=== PATIENT | male | born 1980 | race Caucasian/White ===

== ENCOUNTER 2024-05-25 14:40 | Inpatient (IN) ==
--- NOTE | 2024-05-25 15:11 | Emergency Department Note ---
Impression & Plan Perineal mass in male, Abdominal pain, Vomiting ED Provider Note NAME: MICHELLE VARGHESE AGE: 44 SEX: M : 1980 ARRIVES VIA: Walk-In INFORMANT: Patient ED PROVIDER(S): Kendrick Zhou DO CHIEF COMPLAINT: Perineal pain HPI: Patient is is a 44-year-old male who has been following with urology for peritoneal mass. He notes this has been present all summer and has gotten significantly worse recently. He is having trouble walking and getting around. He admits to drainage and discharge today which is bloody and green. Denies any fevers. No headache or change in vision. No chest pain or shortness of breath. No dysuria, urgency, or frequency. No other exacerbating or remitting factors. ADDITIONAL HISTORY OBTAINED: Per HPI Chronic Medical/Social Conditions Affecting Care: Per HPI PAST MEDICAL HISTORY:See Below PAST SURGICAL HISTORY:See Below FAMILY HISTORY:See Below SOCIAL HISTORY:See Below HOME MEDICATIONS:See Below ALLERGIES:See Below VITALS:See Below PHYSICAL EXAMINATION: GENERAL: Sitting up in bed, alert, well appearing, well nourished, no distress, non-toxic EYE EXAM: normal conjunctiva. PERRL and EOM's grossly intact. OROPHARYNX: mucous membranes are moist LUNGS: Clear to auscultation. Normal chest wall mechanics HEART: no murmurs, S1 normal and S2 normal ABDOMEN: abdomen soft, non-tender, normo-active bowel sounds, no masses, no rebound or guarding. : Induration and tenderness throughout just inferior to the scrotum tracking to the rectum with green/bloody purulent drainage UPPER EXTREMITIES: upper extremities are grossly normal. LOWER EXTREMITIES: No pitting edema. NEURO EXAM: Normal sensorium, cranial nerves II-XII grossly intact, normal speech, no gross weakness of arms, no gross weakness of legs. MEDICAL DECISION MAKING: Patient is a 44-year-old male who presents to the ER for perianal mass which is being followed by urology and is scheduled to go to the OR tomorrow. External records were reviewed did show he is scheduled for the OR with a cystic mass. IV was established and blood work was obtained. He notes the pain has gotten worse and it is draining now. Labs show no significant leukocytosis or anemia. BMP along LFTs was unremarkable. Culture was obtained. He was seen and evaluated. He was given Augmentin. I discussed case with Dr. Smith he noted that this patient would be best served following up as an outpatient for the OR tomorrow as scheduled in outpatient surgical center. Patient was given a dose of morphine for pain. Following this he had severe periumbilical pain associate with vomiting. This would come and go in waves. He was given IV fluids, GI cocktail, Pepcid, Bentyl, Reglan and Phenergan. These episodes would come and go. They lasted for close to 3 hours. Following this he was still on the floor vomiting and we discussed case with the hospitalist for observation. I do favor that this is likely secondary to the morphine as he notes he has had this before with taking [id number] medications and oral pain meds but he did not mention this initially. EKG was obtained due to the belly pain and was unremarkable. Consults/Care Managements Discussions: Per MDM Triage Nursing notes reviewed. Limited review of prior medical records performed Vital Signs: reviewed and remarkable for HTN Differential diagnosis: Cardiac ischemia, aortic dissection, pulmonary embolism, pneumothorax, pneumonia, pericarditis, myocarditis, esophageal rupture, GERD, cholecystitis, pancreatitis, musculoskeletal, as well as other pathologies. ER treatment provided: See below Diagnostics interpreted by me include EKG and cardiac monitoring as listed below: -Cardiac Monitoring: An order was placed for continuous cardiac monitoring. The monitor shows a rate of 80 with sinus rhythm. -ECG: Sinus rhythm rate 75 Normal axis No PVCs QTc 446 -Laboratory studies:Interpreted by me as stated above in MDM and shown below. Imaging studies: Xrays: As interpreted by me:none CTs show: none Procedures:none Critical Care: None Past Med/Surg History Problem List (Updated 05/25/24 @ 21:11 by Kendrick Zhou DO) Vomiting (Acute) Abdominal pain (Acute) Nausea & vomiting Abdominal pain Perineal mass in male (Acute) Medical History (Updated 05/25/24 @ 21:11 by Kendrick Zhou DO) History of COVID-19 + test approx 2019 or 2020. Asymptomatic. 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 Feels Safe at Home: Yes Assistive Devices: Glasses Allergies Allergies Allergy/AdvReac Type Severity Reaction Status Date / Time morphine AdvReac Abdominal Verified 05/25/24 18:08 Pain Home Meds Home Medications Medication Instructions Recorded Confirmed Medical Marijuana Card 1 dose UD PRN back pain/ibs 05/12/24 05/25/24 mirtazapine 30 mg tablet 30 mg PO HS 05/12/24 05/25/24 pantoprazole 40 mg tablet,delayed 40 mg PO QAM 05/12/24 05/25/24 release (Protonix) Previous Rx's Medication Instructions Recorded amoxicillin 875 mg-potassium 1 tab PO BID #20 tabs 05/25/24 clavulanate 125 mg tablet Results & Data (ED) Vital Signs Vital Signs - 24 hr 05/25/24 14:43 05/25/24 15:40 05/25/24 15:40 Temperature 36.7 C Temperature Source Temporal Artery Scan Pulse Rate 81 Pulse Rate [Apical] 87 Pulse Rhythm Regular Pulse Rhythm [Apical] Pulse Strength Normal Pulse Strength [Apical] Normal Respiratory Rate 20 19 Respiratory Effort / Characteristics Non-Labored Spontaneous Non-Labored Spontaneous Respiratory Depth Normal Normal Respiratory Pattern Regular Blood Pressure 144/101 H Blood Pressure [Right Arm] 120/91 Blood Pressure Mean 115 Blood Pressure Mean [Right Arm] 100 Pulse Oximetry 99 98 98 Oxygen Delivery Method Room Air Room Air Room Air Sepsis Recent Fever Within 48 Hours No Sepsis New/Unexplained Change in Mental Status N/A Sepsis Action Taken by Nursing No Action Required 05/25/24 15:58 05/25/24 16:03 05/25/24 17:29 Temperature 37.1 C Temperature Source Oral Pulse Rate 85 Pulse Rate [Apical] 71 77 Pulse Rhythm Pulse Rhythm [Apical] Pulse Strength Pulse Strength [Apical] Normal Respiratory Rate 18 19 Respiratory Effort / Characteristics Non-Labored Spontaneous Non-Labored Spontaneous Respiratory Depth Normal Normal Respiratory Pattern Regular Regular Blood Pressure Blood Pressure [Right Arm] 106/59 L 142/105 H Blood Pressure Mean Blood Pressure Mean [Right Arm] 74 117 Pulse Oximetry 97 95 Oxygen Delivery Method Room Air Room Air Sepsis Recent Fever Within 48 Hours Sepsis New/Unexplained Change in Mental Status Sepsis Action Taken by Nursing 05/25/24 18:36 05/25/24 20:01 05/25/24 20:04 Temperature Temperature Source Pulse Rate 65 Pulse Rate [Apical] 79 73 Pulse Rhythm Pulse Rhythm [Apical] Regular Pulse Strength Pulse Strength [Apical] Normal Respiratory Rate 25 H 26 H Respiratory Effort / Characteristics Non-Labored Spontaneous Respiratory Depth Normal Respiratory Pattern Regular Blood Pressure Blood Pressure [Right Arm] 150/85 H Blood Pressure Mean Blood Pressure Mean [Right Arm] 106 Pulse Oximetry 95 98 Oxygen Delivery Method Room Air Sepsis Recent Fever Within 48 Hours Sepsis New/Unexplained Change in Mental Status Sepsis Action Taken by Nursing Laboratory Data 05/25/24 14:54 05/25/24 14:54 Lab Results 05/25/24 Range/Units 14:54 WBC 10.73 (4.8-10.8) K/ul RBC 4.85 (4.70-6.10) M/uL Hgb 15.7 (14.0-18.0) g/dl Hct 46.8 (42.0-52.0) % MCV 96.5 (80.0-100.0) fL MCH 32.4 (25.0-34.0) pg MCHC 33.5 (32.0-36.0) g/dL RDW Std Deviation 46.5 H (36.4-46.3) fL RDW Coeff of Harlan 12.9 (11.5-14.5) % Plt Count 308 (130-400) K/uL MPV 10.1 (9.4-12.4) fL Immature Gran % (Auto) 0.6 % Neut % (Auto) 75.7 % Lymph % (Auto) 15.2 % Lea % (Auto) 7.5 % Eos % (Auto) 0.4 % Baso % (Auto) 0.6 % Neut # (Auto) 8.14 H (1.40-6.50) K/uL Lymph # (Auto) 1.63 (1.20-3.40) K/uL Lea # (Auto) 0.80 H (0.11-0.59) K/uL Eos # (Auto) 0.04 (0.00-0.50) K/uL Baso # (Auto) 0.06 (0.00-0.20) K/uL Immature Gran # (Auto) 0.06 (0.01-0.20) K/uL Sodium 138 (136-145) mmol/L Potassium 4.1 (3.5-5.1) mmol/L Chloride 100 (98-107) mmol/L Carbon Dioxide 29 (21-32) mmol/L Anion Gap 9 (3-11) BUN 12 (6-23) mg/dl Creatinine 0.86 (0.6-1.4) mg/dl Est Cr Clr Drug Dosing 119.1 ml/min eGFR 108.82 BUN/Creatinine Ratio 14.0 (10-20) Glucose 87 (70-99(Fasting)) mg/dl Calcium 9.9 (8.6-10.3) mg/dl Total Bilirubin 0.8 (0.2-1.0) mg/dl AST 19 (13-39) U/L ALT 17 (7-52) U/L Alkaline Phosphatase 74 (34-104) U/L Total Protein 8.4 H (6.0-8.3) gm/dl Albumin 5.1 H (3.4-5.0) gm/dl Globulin 3.3 (2.5-4.0) gm/dl Albumin/Globulin Ratio 1.5 (0.9-2) Administered Medications Discontinued Medications Al Hydrox/Mg Hydrox/Simethicone (Aluminum/Magnesium Susp 30 Ml Udc) 30 ml PO NOW STA Stop: 05/25/24 17:24 Last Admin: 05/25/24 17:27 Dose: 30 ml Documented By: ANGIE Amoxicillin/Clavulanate Potassium (Amoxicillin/Clavulanate 875 Mg Tab) 1 tab PO NOW ONE; Protocol Stop: 05/25/24 16:59 Last Admin: 05/25/24 19:49 Dose: Not Given Documented By: HEIDY Dicyclomine HCl (Dicyclomine Hcl 10 Mg Cap) 10 mg PO NOW ONE Stop: 05/25/24 17:49 Last Admin: 05/25/24 18:40 Dose: Not Given Documented By: DEISY Dicyclomine HCl (Dicyclomine Hcl 10 Mg/Ml 2 Ml Amp/Vial) 20 mg IM NOW ONE Stop: 05/25/24 18:18 Last Admin: 05/25/24 18:28 Dose: 20 mg Documented By: ANGIE Piperacillin Sod/Tazobactam Sod (Zosyn) 4.5 gm in 100 mls @ 200 mls/hr IV NOW ONE; Protocol Stop: 05/25/24 15:37 Last Infusion: 05/25/24 16:32 Dose: Infused Documented By: Admin: 05/25/24 15:41 Dose: 200 mls/hr Documented By: ANGIE Sodium Chloride (Nss) 1,000 mls @ 999 mls/hr IV .Q1H1M ONE Stop: 05/25/24 17:31 Last Infusion: 05/25/24 18:43 Dose: Infused Documented By: Admin: 05/25/24 16:46 Dose: 999 mls/hr Documented By: ANGIE Famotidine (Pepcid 20mg Iv Push) 20 mg in 5 mls @ 2.5 mls/min IV NOW STA Stop: 05/25/24 17:24 Last Admin: 05/25/24 17:27 Dose: 2.5 mls/min Documented By: ANGIE Promethazine HCl (Phenergan) 25 mg in 51 mls @ 204 mls/hr IV NOW STA Stop: 05/25/24 18:31 Last Infusion: 05/25/24 18:43 Dose: Infused Documented By: Admin: 05/25/24 18:28 Dose: 204 mls/hr Documented By: ANGIE Pantoprazole Sodium (Protonix) 40 mg in 10 mls @ 5 mls/min IV NOW STA Stop: 05/25/24 20:35 Last Admin: 05/25/24 20:52 Dose: 5 mls/min Documented By: HEIDY Ketorolac Tromethamine (Ketorolac Tromethamine 15 Mg/Ml Vial) 10 mg IV NOW ONE Stop: 05/25/24 17:38 Last Admin: 05/25/24 18:02 Dose: Not Given Documented By: DEISY Lorazepam (Lorazepam 2 Mg/1 Ml Vial) 0.5 mg IV NOW STA Stop: 05/25/24 20:36 Last Admin: 05/25/24 20:49 Dose: 0.5 mg Documented By: HEIDY Metoclopramide HCl (Metoclopramide Hcl Inj 5 Mg/Ml 2 Ml Vial) 10 mg IV NOW STA Stop: 05/25/24 17:48 Last Admin: 05/25/24 17:56 Dose: 10 mg Documented By: JLT Morphine Sulfate (Morphine Sulfate 4 Mg/Ml 1 Ml Carp\Vial) 4 mg IV NOW STA Stop: 05/25/24 16:32 Last Admin: 05/25/24 16:49 Dose: 4 mg Documented By: GGG Ondansetron HCl (Ondansetron Inj 2 Mg/Ml 2 Ml Vial) 4 mg IV NOW STA Stop: 05/25/24 16:32 Last Admin: 05/25/24 16:47 Dose: 4 mg Documented By: GGG Ondansetron HCl (Ondansetron Inj 2 Mg/Ml 2 Ml Vial) 4 mg IV NOW STA Stop: 05/25/24 19:42 Last Admin: 05/25/24 19:57 Dose: 4 mg Documented By: SUDHEERW Discharge Plan Visit Data Chief Complaint: Referred by Doctor Stated Complaint: PAIN, SURGERY TOMORROW, STUFF COMING OUT, URINARY ED Provider: Kendrick Zhou Discharge Problem: Perineal mass in male, Abdominal pain, Vomiting Patient Disposition: Home - Self-Care Discharge Instructions Krames/Other Patient Handouts: Abscess Abx Tx Activity Restrictions/Additional Instructions: Please follow up with your primary care doctor or if you are a student, [facility] with in the next 24 hours. Any worsening of your symptoms, please return to the ED immediately. This includes any fevers greater than 100.4, worsening pain, chest pain, shortness breath, persistent nausea, vomiting, unable to eat or drink, or any other concerning signs or symptoms from your standpoint. You were given medications during this visit that will inhibit your ability to drive, operate machinery and work. Please do NOT drive, operate machinery or work for the next 12hrs. You were found to have a blood pressure greater than 120 systolic over 90 diastolic. Due to the new Medicare guidelines, we are now recommending that you follow up with your primary care doctor in regards to this elevated blood pressure. Please take the antibiotic as prescribed. Please make sure that you follow-up with your surgeon tomorrow and keep your appointment for the OR. Interventions: ED Discharge Assessment Last Done: 05/25/24 20:36 Forms Stand Alone Forms: My [facility], Important Visit Information Prescriptions Prescriptions: New amoxicillin-pot clavulanate 875-125 mg tablet 1 tab PO BID Qty: 20 0RF No Action pantoprazole [Protonix] 40 mg Tablet,Delayed Release (Dr/Ec) 40 mg PO QAM mirtazapine 30 mg Tablet 30 mg PO HS Patient Comments: i think 30 on the strenght or something like that Medical Marijuana Card 1 dose UD PRN (Reason: back pain/ibs) Patient Comments: smoke flower Referrals Referrals: Lidya Domingo PAYoletteC [Primary Care Provider] - Discharge Problem: Abdominal pain Qualifiers: Abdominal location: unspecified location Qualified Code(s): R10.9 - Unspecified abdominal pain Vomiting Qualifiers: Vomiting type: unspecified Nausea presence: unspecified Qualified Code(s): R 11.10 - Vomiting, unspecified
[2024-05-25 15:24] LABS: Albumin Globulin Ratio 1.5 (0.9-2); Albumin Level 5.1 gm/dl (3.4-5.0); Bilirubin,Total 0.8 mg/dl (0.2-1.0); Calcium 9.9 mg/dl (8.6-10.3); Creatinine Clr Calc Pharmacy 119.1 ml/min; Globulin 3.3 gm/dl (2.5-4.0); Potassium 4.1 mmol/L (3.5-5.1); Total Protein 8.4 gm/dl (6.0-8.3)
[2024-05-25 15:29] LABS: Basophils # (auto) 0.06 K/uL (0.00-0.20); Basophils % (auto) 0.6 %; Eosinophils # (auto) 0.04 K/uL (0.00-0.50); Eosinophils % (auto) 0.4 %; Hematocrit (blood only) 46.8 % (42.0-52.0); Hemoglobin 15.7 g/dl (14.0-18.0); Immature Granulocytes # (auto) 0.06 K/uL (0.01-0.20); Immature Granulocytes % (auto) 0.6 %; Lymphocytes # (auto) 1.63 K/uL (1.20-3.40); Lymphocytes % (auto) 15.2 %; Mean Corpuscular Hemoglobin 32.4 pg (25.0-34.0); Mean Corpuscular Hgb Conc 33.5 g/dL (32.0-36.0); Mean Corpuscular Volume 96.5 fL (80.0-100.0); Mean Platelet Volume 10.1 fL (9.4-12.4); Monocytes % (auto) 7.5 %; Neutrophils # (auto) 8.14 K/uL (1.40-6.50); Neutrophils % (auto) 75.7 %; Platelet Count 308 K/uL (130-400); RDW Coefficient of Variation 12.9 % (11.5-14.5); RDW Standard Deviation 46.5 fL (36.4-46.3); Red Blood Count 4.85 M/uL (4.70-6.10); White Blood Count 10.73 K/ul (4.8-10.8)
[2024-05-25] MEDS: PIPERACILLIN/TAZOBACTAM 4.5 GM/100 ML BAG IV ONE (15:41)
[2024-05-25] MEDS: SODIUM CHLORIDE 0.9% 1,000 ML IV ONE (16:46)
[2024-05-25] MEDS: ONDANSETRON INJ 2 MG/ML 2 ML VIAL IV STA ×2 (16:47→19:57)
[2024-05-25] MEDS: MoRPHine SULFATE 4 MG/ML 1 ML CARP\\VIAL IV STA (16:49)
[2024-05-25] MEDS: FAMOTIDINE 20MG IV PUSH 20 MG/5 ML SYR IV STA (17:27)
[2024-05-25] MEDS: ALUMINUM/MAGNESIUM SUSP 30 ML UDC PO STA (17:27)
[2024-05-25] MEDS: METOCLOPRAMIDE HCL INJ 5 MG/ML 2 ML VIAL IV STA (17:56)
[2024-05-25] MEDS: DICYCLOMINE HCL 10 MG CAP PO ONE (17:56)
[2024-05-25] MEDS: KETOROLAC TROMETHAMINE 15 MG/ML VIAL IV ONE (18:02)
[2024-05-25] MEDS: PROMETHAZINE 25 MG/51 ML BAG IV STA (18:28)
[2024-05-25] MEDS: DICYCLOMINE HCL 10 MG/ML 2 ML AMP/VIAL IM ONE (18:28)
--- NOTE | 2024-05-25 19:45 | History & Physical Report ---
Date of Service May 25, 2024 Assessment & Plan (1) Perineal mass in male: (2) Abdominal pain: (3) Nausea & vomiting: (4) Acid reflux: Plan 44 year old male who has been following with outpatient urology for perineal mass that first developed at the beginning of summer 2023, presenting today as lump ruptured/is draining blood and pus. #Perineal mass: Previous MRI 04/28 demonstrated fluid collection between posterior scrotum and rectum Urology consulted for evaluation/consideration of I&D +/- cystoscopy and biopsy as previously planned by outpatient urology - NPO at midnight Afebrile, WBC count WNL - will defer MRSA coverage at present, continue IV Zosyn. AM labs: CBC, BMP #Abdominal pain/Nausea/Vomiting: Likely secondary to or exacerbated by morphine administration though question whether could be related to cannabis use - N/V refractory to 1 dose each of Zofran, Reglan, Promethazine. Hopeful that this will spontaneously resolve as morphine clears, but will obtain CXR/KUB to r/o other pathologies. Will give additional 4mg IV Zofran + .5mg IV Ativan followed by IV Zofran 4 mg q6H prn QTc 446 - repeat EKG ordered due to several doses of antiemetics within the past few hours Patient/mother report general intolerance of analgesics (Tylenol, NSAIDs, opiates) - PRN Tylenol, Toradol if patient decides he would like to try a different analgesic Continue home Protonix QAM Will give additional IV NS 100mL/hour x1L due to intractable nausea/vomiting Dispo: Admit to med-surg FEN/GI: NPO @midnight VTE ppx: chemical prophylaxis deferred due to anticipated AM procedure Full Code History of Present Illness Primary Care Provider: Lidya Domingo PA-C 44 year old male who has been following with outpatient urology for perineal mass that first developed at the beginning of summer 2023, presenting today as lump ruptured/is draining blood and pus. Prior to this, overlying skin had been intact. Denies known local trauma, denies associated fever/chills. Previous MRI 04/28/24 notable for linear focus of posterior scrotum and medial gluteal fold inferior to the anus suggestive of a chronic enhancing sinus tract containing a small amount of complex fluid. Previously treated with Bactrim x2 weeks, reports no improvement. Patient had pain in perineum while in ED, was given a dose of morphine and subsequently developed severe intermittent epigastric pain with intractable nausea and vomiting. N/V refractory to trial of multiple antiemetics in ED. Of note, patient was previously given morphine for pain post-cholec ystectomy, reports similar abdominal pain/N/V though he did not make the connection that sx were likely caused by morphine. Allergies Allergy/AdvReac Type Severity Reaction Status Date / Time morphine AdvReac Abdominal Verified 05/25/24 18:08 Pain Home Medications Medication Instructions Recorded Confirmed Type Medical Marijuana Card 1 dose UD PRN back pain/ibs 05/12/24 05/25/24 History mirtazapine 30 mg tablet 30 mg PO HS 05/12/24 05/25/24 History pantoprazole 40 mg tablet,delayed 40 mg PO QAM 05/12/24 05/25/24 History release (Protonix) amoxicillin 875 mg-potassium 1 tab PO BID #20 tabs 05/25/24 Rx clavulanate 125 mg tablet Past Med/Surg History Problem List Vomiting (Acute) Abdominal pain (Acute) Nausea & vomiting Abdominal pain Perineal mass in male (Acute) Medical History History of COVID-19 + test approx 2019 or 2020. Asymptomatic. Bulging lumbar disc 3 Spinal stenosis Arthritis of back Perineal mass in male IBS (irritable bowel syndrome) Acid reflux Surgical History History of colonoscopy Hx laparoscopic cholecystectomy Social History Smoking Status: Never smoker Tobacco Type: Cigarettes Second Hand Exposure: No; Do You Dip or Chew Tobacco: No; Tobacco Cessation Education Requested by Patient: No Hx Alcohol Use: Yes Alcohol type: beer Hx Substance Use: Yes Last Used Substance Other:: prior to eating Substance Use Type Other:: medical marijuana card/advised. Preferred Language: Cypriot Communication Ability: Effective Public Health Educator Required: No Beliefs That Will Affect Care: None Current Living Situation: Alone Current Living Situation Comment: 10 yr old daughter. Other Information That Helps Us Care for You: No Feels Safe at Home: Yes Safety Concerns: Feels Safe At This Time Assistive Devices: None Review of Systems Review of Systems: as per HPI Physical Exam Physical Exam: General: Alert and oriented. In moderate distress. Respiratory: No increased work of breathing Abdominal: Soft, non-distended, +epigastric TTP. Bowel sounds present. Extremities: No lower extremity edema, calves non-tender bilaterally : perineal region with swelling/erythema extending roughly retirement from posterior scrotum to anus, small opening with small amount of blood draining, no pus appreciated. Results & Data Results & Data Vital Signs (Past 12 Hours) Vital Signs Temp Pulse Pulse Resp BP BP Pulse Ox 05/25/24 18:36 79 25 H 150/85 H 95 05/25/24 17:29 77 19 142/105 H 95 05/25/24 16:03 37.1 C 71 18 106/59 L 97 05/25/24 15:58 85 05/25/24 15:40 87 19 120/91 98 05/25/24 15:40 98 05/25/24 14:43 36.7 C 81 20 144/101 H 99 O2 Del Method 05/25/24 18:36 05/25/24 17:29 Room Air 05/25/24 16:03 Room Air 05/25/24 15:58 05/25/24 15:40 Room Air 05/25/24 15:40 Room Air 05/25/24 14:43 Room Air Supervising Physician Co-Signing Physician Notes I personally saw and examined the patient. I independently reviewed the labs, EKG, imaging, problem list, medication list, past medical history and family history. I verified all castro points and agree with resident physician Dr Anton Franks DO with the following exceptions and/or additions: 44 year old male presents to the ER due to abscess with planned drainage tomorrow opening up and blood coming out. Initial plan was for discharge home and follow up with urology for surgery tomorrow however after receiving morphine he started having intractable nausea/vomiting and epigastric pain with diaphoresis. O/E Diaphoretic, HS RRR, no murmurs, Chest CTAB, Abdo epigastric pain A/P Intractable nausea and vomiting - suspect underlying cyclic vomiting syndrome vs. cannabis hyperemesis with morphine exacerbating his symptoms. Give 0.5mg IV of lorazepam which appears to have helped better than everything else given in the ER. Ondansetron 4mg IV first line, lorazepam 2nd line for nausea. Perineal mass and drainage - IV Zosyn, consult urology to see if surgical management can be done as inpatient Resident Activity Tracking Resident Involvement: Resident Care Provided Care Provided: Adult Hospital Medicine
[2024-05-25] MEDS: AMOXICILLIN/CLAVULANATE 875 MG TAB PO ONE (19:49)
[2024-05-25] MEDS: LORazepam 2 MG/1 ML VIAL IV STA (20:49)
[2024-05-25] MEDS: PANTOprazole 40 MG/10 ML SYR IV STA (20:52)
[2024-05-25] MEDS ORDERED: MELATONIN 3 MG TAB PO PRN (21:28)
[2024-05-25] MEDS ORDERED: KETOROLAC TROMETHAMINE 15 MG/ML VIAL IV PRN (21:28)
[2024-05-25] MEDS ORDERED: MAGNESIUM HYDROXIDE SUSP 30 ML UDC PO PRN (21:28)
[2024-05-25] MEDS ORDERED: ACETAMINOPHEN 325 MG TAB PO PRN (21:28)
[2024-05-25] MEDS ORDERED: ALUMINUM/MAGNESIUM SUSP 30 ML UDC PO PRN (21:28)
[2024-05-25] MEDS ORDERED: POLYETHYLENE (MIRALAX) 17 GM PACK PO PRN (21:28)
[2024-05-25] MEDS: MIRTAZAPINE TAB 15 MG TAB PO SCH (22:30)
[2024-05-25] MEDS: PROCHLORPERAZINE 5 MG in SYRINGE 4 ML IV ONE (22:34)
[2024-05-25] MEDS: SODIUM CHLORIDE 0.9% 1,000 ML IV SCH (22:35)
[2024-05-25] MEDS: PIPERACILLIN/TAZOBACTAM 4.5 GM/100 ML BAG IV SCH (22:50)
--- NOTE | 2024-05-25 23:46 | XRay Report ---
Exam(s): XR CXR 1 VIEW EXAM: XR Chest, 1 View CLINICAL HISTORY: Reason for exam: upright ?air under diaphragm. TECHNIQUE: Frontal view of the chest. COMPARISON: No relevant prior studies available. FINDINGS: Lungs: No infiltrate. No atelectasis. No CHF. Pleural space: No pleural effusion. No pneumothorax. Heart: Unremarkable. No cardiomegaly. Mediastinum: Unremarkable. Normal mediastinal contour. Bones/joints: Unremarkable. No acute fracture. IMPRESSION: No acute abnormality. Electronically signed by: Gerry Jose M.D. 05/25/24 23:46 PM
--- NOTE | 2024-05-25 23:48 | XRay Report ---
Exam(s): XR ABDOMEN, 1 view EXAM: XR Abdomen, 1 View CLINICAL HISTORY: ?SBO. TECHNIQUE: Frontal supine view of the abdomen/pelvis. COMPARISON: No relevant prior studies available. FINDINGS: Gastrointestinal tract: No bowel obstruction or ileus. Right upper quadrant cholecystectomy clips. Bones/joints: Unremarkable. No acute fracture. IMPRESSION: No evidence for bowel obstruction. Electronically signed by: Gerry Jose M.D. 05/25/24 23:48 PM
[2024-05-26] MEDS: LORazepam 2 MG/1 ML VIAL IV PRN (01:20)
[2024-05-26] MEDS ORDERED: Nursing to Pharmacy Communication SCH (01:45)
[2024-05-26] MEDS: ONDANSETRON INJ 2 MG/ML 2 ML VIAL IV PRN ×2 (05:37→17:05)
[2024-05-26] MEDS: PANTOprazole 40 MG TAB PO SCH (07:21)
[2024-05-26 07:41] LABS: Hematocrit (blood only) 39.1 % (42.0-52.0); Hemoglobin 13.7 g/dl (14.0-18.0); Mean Corpuscular Hemoglobin 33.3 pg (25.0-34.0); Mean Corpuscular Volume 94.9 fL (80.0-100.0); Mean Platelet Volume 10.4 fL (9.4-12.4); Platelet Count 273 K/uL (130-400); RDW Coefficient of Variation 12.6 % (11.5-14.5); Red Blood Count 4.12 M/uL (4.70-6.10); White Blood Count 9.99 K/ul (4.8-10.8)
[2024-05-26 07:44] LABS: BUN Creatinine Ratio 17.9 (10-20); Calcium 8.6 mg/dl (8.6-10.3); Creatinine Clr Calc Pharmacy 131.3 ml/min; Potassium 4.1 mmol/L (3.5-5.1)
--- NOTE | 2024-05-26 09:25 | Urology Consultation ---
Date of Consultation May 26, 2024 Assessment & Plan (1) Perineal mass in male: 44-year-old male with perineal mass scheduled for outpatient surgical intervention today with urology. He presented to the ED yesterday for evaluation of drainage from perineum and was admitted for intractable nausea and vomiting after receiving morphine. Patient is afebrile, hemodynamically stable Labs reviewedcreatinine 0.78, WBC 9.99, hemoglobin 13.7 Outpatient MRI 04/28 showed large fluid collection starting at the base of the scrotum and extending near the rectum He is scheduled for cystoscopy, perineal incision and drainage and possible biopsy with Dr. Reeder today as an outpatient in surgical center Due to patient's admission, will plan to add on case in the Main ORhe is agreeable Proceed with cystoscopy, perineal incision and drainage, possible biopsy today Risk and benefits of procedure to be reviewed with patient by Dr. Reeder prior to surgery Keep NPO for procedure Continue supportive care and medical management per hospital medicine service Supervising Physician Co-Signing Physician Notes Discussed patient with GAYLE. Agree with plan. Plan for perineal incision and drainage, possible cystoscopy and biopsy History of Present Illness Attending Physician: Kendrick Campos, History of Present Illness This is a 44-year-old male who follows with urology for perineal mass. MRI 04/28 showed a 12.5 cm fluid collection starting at the base of the scrotum and extending near the rectum. He is pending cystoscopy, perineal incision and drainage and possible biopsy with Dr. Reeder on 05/26/24. He presented to the emergency department on 05/25/2024 due to spontaneous drainage from the area. He was admitted to the hospital medicine service due to refractory nausea and vomiting in ED. Urology is consulted for perineal mass. Labs todaycreatinine 0.78, WBC 9.99, hemoglobin 13.7. Patient seen and examined at bedside this morning. He is sleeping upon my arrival, arouses to speech. He is somnolent, but answers questions. He reports that the area spontaneously drained. No discomfort at this time. Denies fever or chills. Reports nausea. Currently NPO. Allergies Allergy/AdvReac Type Severity Reaction Status Date / Time morphine AdvReac Abdominal Verified 05/25/24 18:08 Pain Home Medications Medication Instructions Recorded Confirmed Type Medical Marijuana Card 1 dose UD PRN back pain/ibs 05/12/24 05/25/24 History mirtazapine 30 mg tablet 30 mg PO HS 05/12/24 05/25/24 History pantoprazole 40 mg tablet,delayed 40 mg PO QAM 05/12/24 05/25/24 History release (Protonix) amoxicillin 875 mg-potassium 1 tab PO BID #20 tabs 05/25/24 Rx clavulanate 125 mg tablet Patient History Medical History History of COVID-19 + test approx 2019 or 2020. Asymptomatic. Bulging lumbar disc 3 Spinal stenosis Arthritis of back Perineal mass in male IBS (irritable bowel syndrome) Acid reflux Surgical History History of colonoscopy Hx laparoscopic cholecystectomy Social History Smoking Status: Never smoker Tobacco Type: Cigarettes Second Hand Exposure: No; Do You Dip or Chew Tobacco: No; Tobacco Cessation Education Requested by Patient: No Hx Alcohol Use: Yes Alcohol type: beer Hx Substance Use: Yes Last Used Substance Other:: prior to eating Substance Use Type Other:: medical marijuana card/advised. Preferred Language: Bulgarian Communication Ability: Effective Inpatient Auditor Required: No Beliefs That Will Affect Care: None Current Living Situation: Alone Current Living Situation Comment: 10 yr old daughter. Other Information That Helps Us Care for You: No Feels Safe at Home: Yes Safety Concerns: Feels Safe At This Time Assistive Devices: None Review of Systems Review of Systems: All systems reviewed & are unremarkable except as noted in HPI & below Physical Exam Constitutional: well developed and well nourished; no acute distress Respiratory: normal respiratory effort; no respiratory distress and no labored breathing Gastrointestinal (Abdomen): Inspection/Auscultation: abdomen normal to inspection Musculoskeletal: Head/Neck/Chest: normocephalic Neurologic: moves all extremities and awake Psychiatric: Orientation: oriented x 3 Genitourinary: Perineum with mild erythema, small area of bloody drainage noted on the perineum. Mild fluctuance tracking from perineum to base of scrotum, some induration. No crepitus or necrosis noted. Results & Data Vital Signs (Past 12 Hours) Vital Signs Temp Pulse Resp BP Pulse Ox O2 Del Method 05/26/24 08:16 36.7 C 85 18 123/73 96 Room Air PG Care Time/CCT Total # of Minutes Spent Total Time Spent with Patient: Total time spent is greater than 50% in coordination of care (as documented) at patient's floor/unit and/or counseling patient: Coding Level of Care Code 34142 IN/OBS CONSULT LVL 4,60M Diagnoses Perineal mass in male N50.89
--- NOTE | 2024-05-26 10:11 | Anesthesiology Consultation ---
Date of Service May 26, 2024 Assessment & Plan Chart Review Chart Review: Acceptable Risk for Surgery and Patient NOT seen in Pre Admission Testing History Surgery Operation Date: 05/26/24 07:50 Proposed Procedures p Cystoscopy - Umberto Reeder MD s Perineal Incision and Drainage, Possible Biopsy - Umberto Reeder MD Height/Weight Height: 6 ft Weight: 86.2 kg Allergies Allergy/AdvReac Type Severity Reaction Status Date / Time morphine AdvReac Abdominal Verified 05/25/24 18:08 Pain Medications Home Medications Medication Instructions Recorded Confirmed Last Taken Medical Marijuana Card 1 dose UD PRN back pain/ibs 05/12/24 05/25/24 Unknown mirtazapine 30 mg tablet 30 mg PO HS 05/12/24 05/25/24 Unknown pantoprazole 40 mg tablet,delayed 40 mg PO QAM 05/12/24 05/25/24 05/25/24 release (Protonix) amoxicillin 875 mg-potassium 1 tab PO BID #20 tabs 05/25/24 Unknown clavulanate 125 mg tablet Active Medications Generic Name Dose Route Start Last Admin Trade Name Freq PRN Reason Stop Dose Admin Piperacillin Sod/Tazobactam Sod 4.5 gm in 100 mls @ 25 mls/hr 05/25/24 21:00 05/26/24 06:20 Zosyn IV 06/01/24 20:59 25 mls/hr Q8H KAMLA Administration Protocol Lorazepam 0.5 mg 05/25/24 22:10 05/26/24 06:18 Lorazepam 2 Mg/1 Ml Vial IV 06/24/24 22:09 0.5 mg Q4H PRN Administration Anxiety/Agitation/Nausea Mirtazapine 30 mg 05/25/24 22:00 05/25/24 22:30 Mirtazapine Tab 15 Mg Tab PO 06/24/24 21:59 Not Given HS KAMLA Ondansetron HCl 4 mg 05/25/24 21:28 05/26/24 05:37 Ondansetron Inj 2 Mg/Ml 2 Ml Vial IV 06/24/24 21:27 4 mg Q6H PRN Administration Nausea Pantoprazole Sodium 40 mg 05/26/24 09:00 05/26/24 07:21 Pantoprazole 40 Mg Tab PO 06/25/24 08:59 Not Given QAM [facility] Past Medical History Medical History History of COVID-19 + test approx 2019 or 2020. Asymptomatic. Bulging lumbar disc 3 Spinal stenosis Arthritis of back Perineal mass in male IBS (irritable bowel syndrome) Acid reflux Past Surgical History Surgical History History of colonoscopy Hx laparoscopic cholecystectomy Social History Smoking Status: Never smoker Do You Dip or Chew Tobacco: No Hx Alcohol Use: Yes Alcohol type: beer alcohol intake frequency: 3 or more drinks per day Alcohol Intake Frequency Comment: 6-10 beers daily Hx Substance Use: Yes substance use type: marijuana Substance Use Type Other:: medical marijuana card/advised. Last Used Substance Other:: prior to eating Physical Exam Vital Signs Last Vital Signs Temp 36.7 C 05/26/24 08:16 Pulse 85 05/26/24 08:16 Resp 18 05/26/24 08:16 BP 123/73 05/26/24 08:16 Pulse Ox 96 05/26/24 08:16 O2 Del Method Room Air 05/26/24 08:16 Testing Laboratory Results 05/26/24 06:44 05/26/24 06:44 05/25/24 16:52 Gram Stain - Final Rectal Abscess
--- NOTE | 2024-05-26 12:57 | Hospitalist Progress Note ---
Date of Service May 26, 2024 Assessment & Plan (1) Perineal mass in male: Plan: 44-year-old male with perineal mass scheduled for surgical intervention with Urology. He presented to the ED 05/25 for evaluation of drainage from perineum and was admitted for nausea and vomiting after receiving morphine. Patient is currently stable, afebrile. The patient was kept NPO for a procedure, during which he underwent perineal incision and drainage, and biopsy for excised tissue performed by Dr. Reeder. The wound was packed, and the patient is currently in recovery. A wound care consult has been placed, and arrangements for outpatient wound care will be made if necessary. Cultures are pending. For pain management, hydromorphone has been ordered at 0.5 mg for moderate pain and 1 mg for severe pain, with IV Toradol and Tylenol as needed. Zofran and miralax as needed. Consider transitioning from Zosyn to Augmentin or Unasyn, as MRSA and pseudomonas coverage is not required in this case. Admission and Anticipated Discharge Date Admission Date: May 25, 2024 Supervising Physician Co-Signing Physician Notes chart reviewed and case d/w resident physician and Valentine Cerda MS2, but unable to physically see pt today discussed with urology as well pt off floor in OR, management is largely unique to urology given current situation. continue as per urology, input greatly appreciated Subjective Mr Quiros is a 44 year old male who has been following with outpatient urology for perineal mass that first developed at the beginning of summer 2023, who presented in the ED with a ruptured/broken perineal mass that the patient noted was draining blood and pus. Previous MRI 04/28 demonstrated fluid collection between posterior scrotum and rectum. He presented to the ED due to the progression of the mass, and then was admitted overnight due to acute N/V that was thought to be refractory. I saw patient at bedside this morning. He was sleeping but did arise upon speech. He had no acute events overnight, aside from feeling nauseous, most likely due to the morphine. He feels a but groggy this morning, but does not note any pain in the area this morning. Denies any fevers or chills. No headache or change in vision. No chest pain or shortness of breath. No dysuria, urgency, or frequency. Has been NPO since midnight. He notes that there is no pus draining from the sight this morning and that there is no pain at the site as of today. He is aware that he is scheduled for I&D, with possible cystoscopy, and bladder biopsy. Review of Systems Review of Systems: ROS is negative expect as noted in the HPI Physical Exam Constitutional: well developed and well nourished; no acute distress Respiratory: normal respiratory effort; no respiratory distress and no labored breathing Gastrointestinal (Abdomen): Inspection/Auscultation: abdomen normal to inspection Musculoskeletal: Head/Neck/Chest: normocephalic Neurologic: moves all extremities and awake Psychiatric: Orientation: oriented x 3 Genitourinary: Perineum with mild erythema, small opening noted at the posterior scrotum, no blood or pus noted. Mild fluctuance tracking from perineum to base of scrotum, with some induration. No crepitus or necrosis noted. Results & Data Results & Data Vital Signs (Past 12 Hours) Vital Signs Temp Pulse Resp BP Pulse Ox O2 Del Method 05/26/24 08:16 36.7 C 85 18 123/73 96 Room Air Laboratory Results Creatinine (0.78), WBC (9.99), and Hemoglobin (13.7) are all within normal limits upon last lab draw. Diagnostic Findings Chest Xray and KUB in the setting of abdominal pain and nausea which were negative. Medications Administered Patient is on IV Zosyn, Famotidine, Silmethicone, Zofran, Metoclopramide, Ativan. Morphine was discontinued due to N/V. NSS given in the setting of nausea, vomiting
--- NOTE | 2024-05-26 14:45 | Billing Data ---
Date of Service May 25, 2024 Coding Level of Care Code 08490 INT INP/OBS CARE
[2024-05-26] MEDS ORDERED: PROPOFOL IV EMULSION 10 MG/ML 20 ML VIAL IV ONE (14:55)
[2024-05-26] MEDS ORDERED: LIDOCAINE 2% 2 ML VIAL/AMP(20MG/ML) INFIL ONE (14:55)
[2024-05-26] MEDS ORDERED: DEXAMETHASONE SOD INJ 4 MG/ML VIAL ONE (14:55)
[2024-05-26] MEDS ORDERED: ONDANSETRON INJ 2 MG/ML 2 ML VIAL ONE (14:55)
[2024-05-26] MEDS ORDERED: fentaNYL citrate PF 100 MCG/2 ML VIAL ONE (14:55)
[2024-05-26] MEDS ORDERED: MIDAZOLAM HCL 1 MG/ML 2ML VIAL ONE ×2 (14:55→15:44)
[2024-05-26] MEDS ORDERED: PROMETHAZINE HCL 6.25 MG in SODIUM CHLORIDE 0.9% 50 ML IV PRN (14:57)
[2024-05-26] MEDS ORDERED: ATROPINE SULFATE 0.1 MG/ML 10ML SYR IV PRN (14:57)
[2024-05-26] MEDS ORDERED: ePHEDrine sulfate 50 MG/ML AMP IV PRN (14:57)
[2024-05-26] MEDS ORDERED: fentaNYL citrate PF 100 MCG/2 ML VIAL IV PRN (14:57)
[2024-05-26] MEDS ORDERED: HYDROmorphone INJ 1 MG/ML SYRINGE IV PRN (14:57)
[2024-05-26] MEDS: LACTATED RINGER'S 1,000 ML IV SCH (15:12)
--- NOTE | 2024-05-26 15:27 | Electrocardiogram Report ---
Test Reason : Blood Pressure : */* mmHG Vent. Rate : 75 BPM Atrial Rate : 75 BPM P-R Int : 126 ms QRS Dur : 106 ms QT Int : 400 ms P-R-T Axes : 69 6 58 degrees QTcB Int : 446 ms Normal sinus rhythm Normal ECG No previous ECGs available Confirmed by Geoff Gonzalez ([id number]) on 05/26/2024 3:26:55 PM Referred By: REFERRED SELF Confirmed By: Geoff Gonzalez
[2024-05-26] MEDS ORDERED: HYDROmorphone INJ 2 MG/ML SYR/VIAL ONE (15:54)
[2024-05-26] MEDS ORDERED: DexMEDEtomidine HCL IV 100 MCG/ML VIAL IV ONE (15:54)
[2024-05-26] MEDS ORDERED: PHENYLEPHRINE HCL 10 MG/ML VIAL ONE (16:02)
[2024-05-26] MEDS ORDERED: KETOROLAC 30 MG/ML VIAL ONE (16:11)
[2024-05-26] MEDS: BUPIVACAINE 0.5 % 5 MG/1 ML MPF 30ML VIAL ONE (16:30)
--- NOTE | 2024-05-26 16:32 | Operative Report ---
PG Post Operative Report Pre & Post Diagnosis Perineal abscess/fluid collection Operation Date: 05/26/24 07:50 <No data on this case meets the specified criteria> Perineal abscess/fluid collection I identified the patient and participated in the time-out.: Yes Procedure Perineal incision and drainage, tissue biopsy Operation Date: 05/26/24 07:50 <No data on this case meets the specified criteria> Perineal incision and drainage, tissue biopsy Surgeon Umberto Reeder MD Evs Manager Ortiz Cerda MS 2 Estimated Blood Loss 5 Findings See Below Wound had a subcentimeter open in the perineum. This was opened further. No obvious abscess or purulent drainage. Stringy abnormal tissue was evacuated out of the wound. Not consistent with a typical abscess. Hemostatic at end of case. Specimens 1. Wound cultures 2. Perineal tissue biopsy Drains None Anesthesia Type General Complications none Indications 44-year-old male with a slowly increasing perineal fluid collection that was confirmed on MRI. No obvious signs of infection. He was supposed to have an elective drainage today however presented to the hospital yesterday after it opened up spontaneously. He was started on Zosyn and admitted to the hospitalist service. 2 OR for above-noted procedure. Description of Procedure After informed consent was obtained, the patient was transported to the operative suite. General anesthesia was induced. They were placed in dorsal lithotomy position and prepped and draped in sterile fashion. They received preoperative Zosyn. An appropriate surgical timeout was performed. Perineal area was inspected and there was a small subcentimeter opening in the midline with a small amount of tissue hanging out of it. No obvious purulence could be expressed from this. I took 2 culture swabs of this area. The wound did not appear to communicate with the rectum. I anesthetized the area with 10 cc of half percent Marcaine plain. Using the previously open area, this was further opened up in a caudad and cephalad fashion using Metzenbaum scissors. Wound size was 2 cm x 1 cm. No obvious purulence was evacuated out but there was a lot of inflamed, stringy tissue. This was removed with blunt dissection and Metzenbaum scissors. I bluntly opened some loculations with my finger but again there was no obvious purulence. I sent several pieces of tissue for biopsy as this is not a typical presentation of an abscess nor does appear like an abscess intraoperatively. The wound was copiously irrigated with saline. Spot hemostasis was achieved with electrocautery. There was no concern for involvement of the urethra or rectum. The wound was then packed with half-inch iodoform gauze. This concluded the end of the case. All counts correct at the end of the case. I was present scrubbed Hira participated for the entirety of the procedure. I attest to the content of the Intraoperative Record and any orders documented therein. Any exceptions are noted below.
--- NOTE | 2024-05-26 19:13 | Anesthesiology Progress Note ---
Date of Service May 26, 2024 Anesthesia Post Procedure Vital Signs Vital Signs: Temp Pulse Pulse Resp BP Pulse Ox O2 Del Method 05/26/24 18:07 36.9 C 104 H 16 127/79 94 Room Air 05/26/24 17:50 36.8 C 100 H 17 115/74 93 Room Air 05/26/24 17:31 91 H 14 124/76 95 Room Air 05/26/24 17:15 36.3 C L 90 14 120/80 98 Room Air 05/26/24 17:05 88 16 111/78 98 Room Air 05/26/24 16:55 85 14 113/73 97 Room Air 05/26/24 16:45 86 15 112/76 98 Oxymask 05/26/24 16:37 37 C 84 13 103/64 98 Oxymask 05/26/24 14:58 36.7 C 107 H 20 126/68 96 Room Air 05/26/24 08:16 36.7 C 85 18 123/73 96 Room Air 05/25/24 21:06 36.3 C L 50 L 18 146/85 H 100 Room Air 05/25/24 20:04 65 05/25/24 20:01 73 26 H 98 Room Air O2 Flow Rate 05/26/24 18:07 05/26/24 17:50 05/26/24 17:31 05/26/24 17:15 05/26/24 17:05 05/26/24 16:55 05/26/24 16:45 6 05/26/24 16:37 10 05/26/24 14:58 05/26/24 08:16 05/25/24 21:06 05/25/24 20:04 05/25/24 20:01 Pain Intensity Scrotal: Pain Intensity: 1 Transfer of Care Handoff Completed per policy Notes Mental Status: alert / awake / arousable and participated in evaluation Patient Amnestic to Procedure: Yes Nausea / Vomiting: adequately controlled Pain: adequately controlled Airway Patency, RR, SpO2: stable & adequate BP & HR: stable & adequate Hydration State: stable & adequate Anesthetic Complications: no major complications apparent and Pt Satisfied with anesthetic care
--- NOTE | 2024-05-27 08:39 | Urology Progress Note ---
Date of Service May 27, 2024 Assessment & Plan (1) Perineal mass in male: Plan: POD #1 s/p Perineal incision and drainage, tissue biopsy Patient afebrile, hemodynamically stable Labs reviewedcreatinine 0.95, WBC 15.33, hemoglobin 14.7 Wound cultures and pathology pending Subjectively doing well Wound care nurse consulted for evaluation and management Continue daily wound care per [facility] Patient will need wound care plan upon discharge Continue supportive care and medical management per hospital team We will arrange outpatient follow-up with our service Admission and Anticipated Discharge Date Admission Date: May 25, 2024 Subjective Patient seen and examined at bedside this morning. No acute issues overnight. Reports minimal scrotal discomfort. Reports some drainage on outer dressings. Denies fever, chills, nausea or vomiting. Review of Systems Constitutional: as per Subjective / HPI Gastrointestinal: as per Subjective / HPI Genitourinary: + as per Subjective / HPI Physical Exam Constitutional: well developed and well nourished; no acute distress Respiratory: normal respiratory effort; no respiratory distress and no labored breathing Gastrointestinal (Abdomen): Inspection/Auscultation: abdomen normal to inspection Musculoskeletal: Head/Neck/Chest: normocephalic Neurologic: moves all extremities and awake Psychiatric: Orientation: oriented x 3 Genitourinary: Perineum with mild erythema and induration. Wound packing intact at perineum. Outer dressing with minimal sanguinous drainage. No crepitus or necrosis noted. Results & Data Vital Signs (Past 12 Hours) Vital Signs Temp Pulse Resp BP Pulse Ox O2 Del Method 05/27/24 07:31 36.9 C 80 18 124/81 97 Room Air PG Care Time/CCT Total # of Minutes Spent Total Time Spent with Patient: Total time spent is greater than 50% in coordination of care (as documented) at patient's floor/unit and/or counseling patient: Coding Level of Care Code 31893 SUB INP/OBS CARE 08/14MIN Diagnoses Perineal mass in male N50.89
[2024-05-27 10:18] LABS: Basophils # (auto) 0.02 K/uL (0.00-0.20); Basophils % (auto) 0.1 %; Eosinophils # (auto) 0.01 K/uL (0.00-0.50); Eosinophils % (auto) 0.1 %; Hematocrit (blood only) 42.4 % (42.0-52.0); Hemoglobin 14.7 g/dl (14.0-18.0); Immature Granulocytes # (auto) 0.16 K/uL (0.01-0.20); Lymphocytes # (auto) 1.13 K/uL (1.20-3.40); Lymphocytes % (auto) 7.4 %; Mean Corpuscular Hgb Conc 34.7 g/dL (32.0-36.0); Mean Corpuscular Volume 95.1 fL (80.0-100.0); Mean Platelet Volume 9.7 fL (9.4-12.4); Monocytes # (auto) 1.31 K/uL (0.11-0.59); Monocytes % (auto) 8.5 %; Neutrophils % (auto) 82.9 %; Platelet Count 293 K/uL (130-400); RDW Coefficient of Variation 13.1 % (11.5-14.5); RDW Standard Deviation 46.3 fL (36.4-46.3); Red Blood Count 4.46 M/uL (4.70-6.10); White Blood Count 15.33 K/ul (4.8-10.8)
--- NOTE | 2024-05-27 10:30 | Electrocardiogram Report ---
Test Reason : Blood Pressure : */* mmHG Vent. Rate : 84 BPM Atrial Rate : 84 BPM P-R Int : 138 ms QRS Dur : 90 ms QT Int : 384 ms P-R-T Axes : 81 21 55 degrees QTcB Int : 453 ms Normal sinus rhythm Normal ECG When compared with ECG of 25-May-2024 17:35, No significant change was found Confirmed by Geoff Gonzalez ([id number]) on 05/27/2024 10:30:11 AM Referred By: REFERRED SELF Confirmed By: Geoff Gonzalez
[2024-05-27] MEDS ORDERED: oxyCODONE HCL IR 5 MG TAB (IMMEDIATE RELEASE) PO PRN (10:32)
[2024-05-27] MEDS ORDERED: ACETAMINOPHEN 500 MG TAB PO PRN (10:32)
[2024-05-27] MEDS ORDERED: HYDROmorphone HCL 2 MG TAB PO PRN (10:32)
[2024-05-27 10:33] LABS: BUN Creatinine Ratio 14.7 (10-20); Calcium 8.9 mg/dl (8.6-10.3); Creatinine Clr Calc Pharmacy 107.8 ml/min; Potassium 4.1 mmol/L (3.5-5.1)
--- NOTE | 2024-05-27 13:13 | Hospitalist Progress Note ---
Date of Service May 27, 2024 Assessment & Plan (1) Perineal mass in male: Plan: Patient is 1 day s/p perineal incision and drainage, tissue biopsy. Patient is afebrile and is hemodynamically stable. Patient has some postoperative leukocytosis today after procedure. Wound cultures and pathology are pending. Patient to continue IV antibiotics and when patient is ready for discharge can consider augmentin PO. Subjectively doing well; patient is in a moderate amount of pain. Patient expressed concerned about ambulating and moving around when d/c due to living in [facility]. Will keep him admitted until pain and ambulation is improved. Wound care nurse consulted for evaluation and management. Continue daily wound care per [facility]. The patient has expressed a preference to avoid prescribed medications for pain management and instead wishes to utilize medical cannabis, for which he has a valid medical marijuana card. Hospital team informed the patient that we will speak with the pharmacy to facilitate this request during his hospital stay. Patient will need wound care plan upon discharge in the outpatient setting. Continue supportive care and wound packing [facility] Urology to see patient in outpatient setting after d/c. Await culture and pathology results. Admission and Anticipated Discharge Date Admission Date: May 25, 2024 Supervising Physician Co-Signing Physician Notes chart reviewed and case d/w resident physician and N Armando Cerda MS2, but unable to physically see pt today pain - but doesn't want narcotics. pain better in comfortable positions. takes medical marijuana at home wonders if he could take it here vitals noted nad heent nc at mmm breathing unlabored no accessory muscles good effort skin no rashes no pallor or icterus perineal lesion - post surgery, bx. pain control, await cultures and bx. home/outpt f/u once pain better controlled otherwise as above Subjective Mr Quiros is a 44 year old male who has been following with outpatient urology for perineal mass that first developed at the beginning of summer 2023, who presented in the ED with a ruptured/broken perineal mass that the patient noted was draining blood and pus. Previous MRI 04/28 demonstrated fluid collection between posterior scrotum and rectum. 05/26 patient was taken to the OR and an Incision and Drainage with biopsy of the mass was performed by Dr Reeder. I saw the patient at the bedside this morning, and he reports feeling much improved since yesterday with the exception of some post operative pain. He had no acute events overnight, his nausea has resolved. He is expressing some concerns about safely ambulating at home in his camper van. He denies fever or chills. There is no headache, visual changes, chest pain, or shortness of breath. He has had no issues with dysuria, urgency, or frequency an d he has relieved his bladder 34 times in the past 12 hours. While he has not been able to ambulate without pain, he is currently preferring to manage his discomfort without the use of prescribed pain medications. Review of Systems Review of Systems: ROS is negative expect as noted in the HPI Physical Exam Constitutional: well developed and well nourished; no acute distress Respiratory: normal respiratory effort; no respiratory distress and no labored breathing Gastrointestinal (Abdomen): Inspection/Auscultation: abdomen normal to inspection Musculoskeletal: Head/Neck/Chest: normocephalic Neurologic: moves all extremities and awake Psychiatric: Orientation: oriented x 3 Genitourinary: Perineum with mild erythema, surgical site remains packed with strip. No leakage of fluid, blood, or purulent discharge. No necrosis or gangrene Results & Data Results & Data Vital Signs (Past 12 Hours) Vital Signs Temp Pulse Resp BP Pulse Ox O2 Del Method 05/27/24 07:31 36.9 C 80 18 124/81 97 Room Air Laboratory Results Leukocytosis WBC - 15.33 Diagnostic Findings Biopsy and cultures pending. Medications Administered Augmentin, Protonix, Mirtazpine, Medical Marijuana
--- NOTE | 2024-05-27 17:07 | Billing Data ---
Date of Service May 27, 2024 Coding Level of Care Code 94745 SUB INP/OBS CARE
--- NOTE | 2024-05-28 09:48 | Hospitalist Progress Note ---
Date of Service May 28, 2024 Assessment & Plan (1) Perineal mass in male: Plan: Patient is 2 days s/p perineal incision and drainage, tissue biopsy. Patient is afebrile and is hemodynamically stable. Cultures and biopsy indicate granulation and healing wound tissue which aligns with patient's history of long standing perineal mass and potential drainage to the area before coming into the emergency department. Patient's pain is what keeps him admitted. Patient has expressed a preference to avoid prescribed medications for pain management and instead wishes to utilize medical cannabis, for which he has a valid medical marijuana card. He has been using this and has had symptomatic relief but still some trouble ambulating. Continue pain management and IV antibiotics. Consult with wound care to ensure wound is packed today and coordinate care and scheduled for outpatient wound care. Follow with urology outpatient for follow up and management. Admission and Anticipated Discharge Date Admission Date: May 25, 2024 Subjective I saw the patient at the bedside this morning, and he reports feeling much improved since yesterday, still with the exception of some post operative pain. He notes that he saw wound care yesterday and the site was repacked. He is planning on seeing them again today for repacking. He had no acute events overnight, his nausea has resolved. He still notes trouble ambulating and pain upon changing positions. He notes that laying in the supine position relieves his pain, as well as scheduled doses of marijuana edibles, as listed on his medications. Patient notes that he was moved to a different room last night and was able to sleep more after that. Patient notes that his pain is still quite bothersome, and it is not controlled at this time. He describes the pain as sharp and stabbing in nature. He denies fever or chills. There is no headache, visual changes, chest pain, or shortness of breath. He has had no issues with dysuria, urgency, or frequency and he has relieved his bladder overnight. Review of Systems Review of Systems: Negative, except for what was noted in the HPI Physical Exam Constitutional: well developed and well nourished; no acute distress Respiratory: normal respiratory effort; no respiratory distress and no labored breathing Gastrointestinal (Abdomen): Inspection/Auscultation: abdomen normal to inspection Musculoskeletal: Head/Neck/Chest: normocephalic Neurologic: moves all extremities and awake Psychiatric: Orientation: oriented x 3 Genitourinary: Perineum with mild erythema, surgical site is packed with strip. No leakage of fluid, blood, or purulent discharge. No necrosis or gangrene Results & Data Results & Data Vital Signs (Past 12 Hours) Vital Signs Temp Pulse Resp BP Pulse Ox O2 Del Method 05/28/24 07:11 36.3 C L 70 18 114/72 97 Room Air Diagnostic Findings Tissue biopsy came back; granulation tissue was seen but no other findings reported Cultures preliminarily show WBCs.
--- NOTE | 2024-05-28 10:58 | Urology Progress Note ---
Date of Service May 28, 2024 Assessment & Plan (1) Perineal mass in male: Plan: POD #2 s/p Perineal incision and drainage, tissue biopsy Patient afebrile, hemodynamically stable Subjectively doing well Wound care nurse consulted for evaluation and management Continue daily wound care per WCN Patient will need wound care plan upon discharge Continue antibiotics and follow cultures Continue supportive care, antibiotics and medical management per hospital team We will arrange outpatient follow-up with our service will sign off, recall as needed Admission and Anticipated Discharge Date Admission Date: May 25, 2024 Subjective Patient seen and examined this morning. No issues overnight. Pain is controlled. He is ambulating. WCN exchanged packing yesterday. Reports less drainage from wound. No fever or chills. Physical Exam Constitutional: well developed and well nourished; no acute distress Respiratory: normal respiratory effort; no respiratory distress and no labored breathing Gastrointestinal (Abdomen): Inspection/Auscultation: abdomen normal to inspection Musculoskeletal: Head/Neck/Chest: normocephalic Neurologic: moves all extremities and awake Psychiatric: Orientation: oriented x 3 Genitourinary: Perineum with mild erythema and induration. Wound packing intact at perineum. Outer dressing with minimal sanguinous drainage. No crepitus or necrosis noted. Results & Data Vital Signs (Past 12 Hours) Vital Signs Temp Pulse Resp BP Pulse Ox O2 Del Method 05/28/24 07:11 36.3 C L 70 18 114/72 97 Room Air PG Care Time/CCT Total # of Minutes Spent Total Time Spent with Patient: Total time spent is greater than 50% in coordination of care (as documented) at patient's floor/unit and/or counseling patient: Coding Level of Care Code 08624 SUB INP/OBS CARE /25MIN Diagnoses Perineal mass in male N50.89
--- NOTE | 2024-05-28 13:32 | Billing Data ---
Date of Service May 28, 2024 Coding Level of Care Code 93442 SUB INP/OBS CARE
[2024-05-28] MEDS: AMOXICILLIN/CLAVULANATE 875 MG TAB PO SCH (16:54)
--- NOTE | 2024-05-29 07:20 | Hospitalist Progress Note ---
Date of Service May 29, 2024 Assessment & Plan (1) Perineal mass in male: Plan Patient is 1 day s/p perineal incision and drainage, tissue biopsy. 1) Perineal mass in male - Patient is afebrile and is hemodynamically stable; with some postoperative leukocytosis today after procedure. Wound cultures and pathology are pending. - Patient to continue IV antibiotics and when patient is ready for discharge can consider d/c on Augmentin PO. - Subjectively doing well; patient is in a moderate amount of pain. Patient expressed concerned about ambulating and moving around when d/c due to living in [facility]. Will keep him admitted until pain and ambulation is improved. Wound care nurse consulted for evaluation and management. Continue daily wound care per WCN. - The patient has expressed a preference to avoid prescribed medications for pain management and instead wishes to utilize medical cannabis, for which he has a valid medical marijuana card. Hospital team informed the patient that we will speak with the pharmacy to facilitate this request during his hospital stay. - Patient will need wound care plan upon discharge in the outpatient setting. Continue supportive care and wound packing as per wound care nurse. Urology to see patient in outpatient setting after d/c. - negative MRSA nares - Preliminary scrotal aerobic/anaerobic culture results show low counts of mixed skin microbiota only - Preliminary rectal aerobic/anaerobic culture results show low counts of mixed GI microbiota only - Pathology results report inflamed granulation tissue with areas of hemorrhage Code status: Full DVT Prophylaxis: consider SCD's to knee if not ambulating FENGI: Regular diet Disposition: Med-Surg Admission and Anticipated Discharge Date Admission Date: May 25, 2024 Supervising Physician Co-Signing Physician Notes I personally examined the patient and verified all castro points of history and exam, discussed case, and agree with decision making with Dr Gómez still nervous about going home - and appears case management was unable to get through / get call back to ensure scheduling with wound clinic - pt understandably concerned about leaving before wound appt set up given area of wound/packing/etc vitals noted nad heent nc at mmm breathing unlabored no accessory muscles good effort perineal lesion - ongoing wound care, bx and cx reassuring. pain control. home once feels like he'll be able to take care of himself and once wound care has been set up. unfortunately outpt care may not be able to be set up until friday DVT proph - ambulation otherwise as above Subjective Patient reports continued improvement, still with the exception of some post operative pain. He notes that he saw wound care yesterday, the site was repacked, and he believes they will be by again at 2:00 pm today. He had no acute events overnight, his nausea has resolved. He notes improved ambulating with walker and pain upon changing positions. He notes that laying in the supine position relieves his pain, as well as scheduled doses of marijuana edibles, as listed on his medications. Patient notes that pain is more or less well controlled, a 3/10 on the severity scale. He denies fever or chills. There is no headache, visual changes, chest pain, or shortness of breath. He has had no issues with dysuria, urgency, or frequency and he has relieved his bladder overnight. Review of Systems Constitutional: no fever, no chills and no fatigue Respiratory: no cough, no dyspnea and no wheezing Cardiovascular: no chest pain, no palpitations and no calf pain Gastrointestinal: no abdominal pain, no nausea, no vomiting, no constipation and no diarrhea/loose stools Genitourinary: no dysuria, no urinary frequency or no urinary hesitancy Neurologic: no tingling, no numbness and no headache(s) Physical Exam Constitutional: WD/WN, vitals as above Respiratory: normal respiratory effort, lungs clear to auscultation Cardiovascular: RRR, no murmur, no edema Gastrointestinal (Abdomen): normal bowel sounds, soft, nontender, no hepatosplenomegaly Psychiatric: A+Ox3, euthymic affect Genitourinary: Perineal abscess noted on visual inspection. Results & Data Results & Data Vital Signs (Past 12 Hours) Vital Signs Temp Pulse Resp BP Pulse Ox O2 Del Method 05/28/24 19:48 36.5 C 65 12 129/82 93 Room Air
--- NOTE | 2024-05-29 17:46 | Billing Data ---
Date of Service May 29, 2024 Coding Level of Care Code 74335 SUB INP/OBS CARE
--- NOTE | 2024-05-30 07:03 | Hospitalist Progress Note ---
Date of Service May 30, 2024 Assessment & Plan (1) Perineal mass in male: Plan Patient is 1 day s/p perineal incision and drainage, tissue biopsy. 1) Perineal mass in male - Patient is afebrile and is hemodynamically stable; with some postoperative leukocytosis today after procedure. Wound cultures and pathology are pending. - Patient to continue IV antibiotics and when patient is ready for discharge can consider d/c on Augmentin PO. - Subjectively doing well; patient is in a moderate amount of pain. Patient expressed concerned about ambulating and moving around when d/c due to living in [facility]. Will keep him admitted until pain and ambulation is improved. Wound care nurse consulted for evaluation and management. Continue daily wound care per WCN. - The patient has expressed a preference to avoid prescribed medications for pain management and instead wishes to utilize medical cannabis, for which he has a valid medical marijuana card. Hospital team informed the patient that we will speak with the pharmacy to facilitate this request during his hospital stay. - Patient will need wound care plan upon discharge in the outpatient setting. Continue supportive care and wound packing as per wound care nurse. Urology to see patient in outpatient setting after d/c. - negative MRSA nares - Preliminary scrotal aerobic/anaerobic culture results show low counts of mixed skin microbiota only - Preliminary rectal aerobic/anaerobic culture results show low counts of mixed GI microbiota only - Pathology results report inflamed granulation tissue with areas of hemorrhage Code status: Full DVT Prophylaxis: ambulation FENGI: Regular diet Disposition: Med-Surg Admission and Anticipated Discharge Date Admission Date: May 25, 2024 Supervising Physician Co-Signing Physician Notes I personally examined the patient and verified all castro points of history and exam, discussed case, and agree with decision making with Dr Gómez hopefully home tomorrow after coordination [facility] wound clinic and packing change vitals noted nad heent nc at mmm breathing unlabored no accessory muscles good effort perineal lesion - ongoing wound care, bx and cx reassuring. pain control. hopefully home 05/31 - packing change, and ensuring has outpt wound clinic set up for 06/01 necessary prior to dc, however DVT proph - ambulation otherwise as above Subjective Patient reports continued improvement, still with the exception of some post operative pain. He notes that he saw wound care yesterday, the site was repacked, and he believes they will be by again at 2:00 pm today. He had no acute events overnight, his nausea has resolved. He notes improved ambulating with walker and pain upon changing positions. He notes that laying in the supine position relieves his pain, as well as scheduled doses of marijuana edibles, as listed on his medications. Patient notes that pain is more or less well controlled, a 3/10 on the severity scale. He denies fever or chills. There is no headache, visual changes, chest pain, or shortness of breath. He has had no issues with dysuria, urgency, or frequency and he has been able to urinate as normal. Pt would like to get wound dressing changed tomorrow before leaving, so that he could begin his outpatient wound care clinic appts starting on . Review of Systems Review of Systems: as per HPI Constitutional: no fever, no chills and no fatigue Respiratory: no cough, no dyspnea and no wheezing Cardiovascular: no chest pain, no palpitations and no calf pain Gastrointestinal: no abdominal pain, no nausea, no vomiting, no constipation and no diarrhea/loose stools Genitourinary: no dysuria, no urinary frequency or no urinary hesitancy Neurologic: no tingling, no numbness and no headache(s) Physical Exam Constitutional: WD/WN, vitals as above Respiratory: normal respiratory effort, lungs clear to auscultation Cardiovascular: RRR, no murmur, no edema Gastrointestinal (Abdomen): normal bowel sounds, soft, nontender, no hepatosplenomegaly Psychiatric: A+Ox3, euthymic affect Results & Data Results & Data Vital Signs (Past 12 Hours) Vital Signs Temp Pulse Resp BP Pulse Ox O2 Del Method 05/29/24 20:11 36.5 C 73 16 123/80 97 Room Air
[2024-05-30 07:29] LABS: Basophils # (auto) 0.05 K/uL (0.00-0.20); Basophils % (auto) 0.6 %; Eosinophils # (auto) 0.21 K/uL (0.00-0.50); Eosinophils % (auto) 2.7 %; Hematocrit (blood only) 42.4 % (42.0-52.0); Hemoglobin 14.2 g/dl (14.0-18.0); Immature Granulocytes # (auto) 0.07 K/uL (0.01-0.20); Immature Granulocytes % (auto) 0.9 %; Lymphocytes # (auto) 2.13 K/uL (1.20-3.40); Lymphocytes % (auto) 27.1 %; Mean Corpuscular Hemoglobin 32.4 pg (25.0-34.0); Mean Corpuscular Hgb Conc 33.5 g/dL (32.0-36.0); Mean Corpuscular Volume 96.8 fL (80.0-100.0); Mean Platelet Volume 9.6 fL (9.4-12.4); Monocytes # (auto) 0.78 K/uL (0.11-0.59); Monocytes % (auto) 9.9 %; Neutrophils # (auto) 4.62 K/uL (1.40-6.50); Neutrophils % (auto) 58.8 %; Platelet Count 258 K/uL (130-400); RDW Coefficient of Variation 12.7 % (11.5-14.5); RDW Standard Deviation 45.7 fL (36.4-46.3); Red Blood Count 4.38 M/uL (4.70-6.10); White Blood Count 7.86 K/ul (4.8-10.8)
--- NOTE | 2024-05-30 16:33 | Billing Data ---
Date of Service May 30, 2024 Coding Level of Care Code 78685 SUB INP/OBS CARE
--- NOTE | 2024-05-31 07:33 | Hospitalist Progress Note ---
Date of Service May 31, 2024 Assessment & Plan (1) Perineal mass in male: Plan Patient is 1 day s/p perineal incision and drainage, tissue biopsy. 1) Perineal mass in male - Patient is afebrile and is hemodynamically stable; with some postoperative leukocytosis today after procedure. Wound cultures and pathology are pending. - Patient to continue IV antibiotics and when patient is ready for discharge can consider d/c on Augmentin PO. - Subjectively doing well; patient is in a moderate amount of pain. Patient expressed concerned about ambulating and moving around when d/c due to living in [facility]. Will keep him admitted until pain and ambulation is improved. Wound care nurse consulted for evaluation and management. Continue daily wound care per WCN. - The patient has expressed a preference to avoid prescribed medications for pain management and instead wishes to utilize medical cannabis, for which he has a valid medical marijuana card. Hospital team informed the patient that we will speak with the pharmacy to facilitate this request during his hospital stay. - Patient will need wound care plan upon discharge in the outpatient setting. Continue supportive care and wound packing as per wound care nurse. Urology to see patient in outpatient setting after d/c. - negative MRSA nares - Preliminary scrotal aerobic/anaerobic culture results show low counts of mixed skin microbiota only - Preliminary rectal aerobic/anaerobic culture results show low counts of mixed GI microbiota only - Pathology results report inflamed granulation tissue with areas of hemorrhage Code status: Full DVT Prophylaxis: ambulation FENGI: Regular diet Disposition: Med-Surg Admission and Anticipated Discharge Date Admission Date: May 25, 2024 Subjective Pt is a [] yo [] with a past medical history of [] who presents to the hospital on [] for []. Review of Systems Review of Systems: Constitutional: denies fever, chills, [] HEENT: denies congestion, sore throat Cardio: denies chest pain, palpitations Resp: denies shortness of breath, cough GI: denies abdominal pain, nausea, vomiting, constipation, diarrhea : denies pain with urination, change in urinary frequency Neuro: denies new numbness, tingling, weakness Physical Exam Physical Exam: General:Alert and oriented, no acute distress, [] HEENT: Normocephalic, moist oral mucosa, Cardio: Regular rate and rhythm, no murmur, Resp:Lungs clear to auscultation b/l, no wheezes or rhonchi, GI: Soft and nontender, nondistended, bowel sounds active Skin: Warm, pink, dry, Psych: Mood-affect congruence. Results & Data Results & Data Vital Signs (Past 12 Hours) Vital Signs Temp Pulse Resp BP Pulse Ox O2 Del Method 05/30/24 20:05 36.9 C 66 16 143/73 H 98 Room Air
[2024-05-31 07:41] VITALS: BP 137/86; PULSE 60; RESP 17; TEMP 97.5; O2SAT 99
--- NOTE | 2024-05-31 09:39 | Discharge Summary ---
Date of Service May 31, 2024 Admission HPI Per Admitting Provider 44 year old male who has been following with outpatient urology for perineal mass that first developed at the beginning of summer 2023, presenting today as lump ruptured/is draining blood and pus. Prior to this, overlying skin had been intact. Denies known local trauma, denies associated fever/chills. Previous MRI 04/28/24 notable for linear focus of posterior scrotum and medial gluteal fold inferior to the anus suggestive of a chronic enhancing sinus tract containing a small amount of complex fluid. Previously treated with Bactrim x2 weeks, reports no improvement. Patient had pain in perineum while in ED, was given a dose of morphine and subsequently developed severe intermittent epigastric pain with intractable nausea and vomiting. N/V refractory to trial of multiple antiemetics in ED. Of note, patient was previously given morphine for pain post- cholecystectomy, reports similar abdominal pain/N/V though he did not make the connection that sx were likely caused by morphine. Admission Exam Per Admitting Provider General: Alert and oriented. In moderate distress. Respiratory: No increased work of breathing Abdominal: Soft, non-distended, +epigastric TTP. Bowel sounds present. Extremities: No lower extremity edema, calves non-tender bilaterally : perineal region with swelling/erythema extending roughly assisted from posterior scrotum to anus, small opening with small amount of blood draining, no pus appreciated. Principal Diagnosis Perineal mass Discharge Exam General:Alert and oriented, no acute distress, HEENT: Normocephalic, moist oral mucosa, Cardio: Regular rate and rhythm, no murmur, Resp:Lungs clear to auscultation b/l, Skin: Warm, pink, dry, Discharge Data Allergies Allergy/AdvReac Type Severity Reaction Status Date / Time morphine AdvReac Abdominal Verified 05/25/24 18:08 Pain Consultations 05/25/24 18:33 ED Decision to Admit Stat 05/25/24 21:28 Consult Urology Routine Procedures Performed Operation Date: 05/26/24 07:50 Actual Procedures p Perineal Incision and Drainage, Biopsy(Not Applicable) - Umberto Reeder MD Hospital Course (1) Perineal mass in male: Plan Pt is a 44 yo male who presented to the hospital on 05/25 for perineal mass s/p incision and drainage on 05/26. #Perineal mass in male - pt presented to the hospital for perineal mass draining blood/pus - Previous MRI 04/28 demonstrated fluid collection between posterior scrotum and rectum, was suppose to have elective scheduled drainage but wound opened and started to drain prompting hospital stay - pt taken for I&D on 05/26, continue antibiotic augmentin on discharge - scrotal/rectal cultures negative, just low skin/GI anmol - pathology results report inflamed granulation tissue with areas of hemorrhage - to continue wound care on discharge - remained afebrile with stable vitals and white count resolved, so pt wishes for discharge with wound clinic care Total Time Total Time Spent Total Time Spent (In Minutes): As per attending attestation. Discharge Plan Discharge Items Patient Disposition: Home - Self-Care Reason For Visit: PERINEAL MASS Discharge Diagnosis: Perineal abscess Activity: Resume your previous activity Activity Comment: Resume previous activity as tolerated, but ambulate daily Non-emergency contact: Primary Care Provider and Specialist Call non-emergency contact if: you have any medication questions and you have a fever Follow-up/Referrals: Lidya Domingo PA-C [Primary Care Provider] - 06/04/24 9:00 am Diet: Regular Addtl Attending Provider Instructions: You were admitted to the hospital for perineal abscess. You were treated with a surgery (incision and drainage) and oral antibiotics (Augmentin). A discharge summary will be sent to your primary care physician to ensure continuity of care. Please bring this discharge summary with you to your next office appointment so that your provider can review it at that time. Follow-up appointments: Make a follow-up appointment with your PCP within the next week. It is very important that you follow up with them shortly after discharge from the hospital. We have requested a follow-up appointment with wound care clinic at [facility] on Friday, day after discharge. Please call their office if you do not hear from them. Medications: Your medication list has been reviewed and reconciled upon discharge to ensure accuracy and continuity of care. An updated list of all your medications is included with your hospital discharge paperwork. Please review this list closely, and make note of any changes. Continue taking the Augmentin that was already sent to your pharmacy. Take Augmentin (875/125 mg: amoxicillin/potassium clavulanate)/one tablet, twice a day, for 4 1/2 days, through end of Friday, 06/04. Take your medications as instructed; do not skip a dose of your medicines. Make sure all of your doctors know every medicine you are taking (including [id number] medicines, vitamins, and supplements). Call your primary care provider before taking any new medicines (including qaod-pey-[id number] medicines, vitamins, and supplements), because some of these may interact with your current medications, or may make your symptoms worse. Tell your primary care provider if you cannot afford your medications. CONTACT YOUR PRIMARY CARE PROVIDER if you experience any of the following: increasing erythema and edema of marleen-abscess area, pus-like discharge Fever, chills, Difficulty following your treatment plan, or difficulty taking medications CALL 911 OR GO TO THE EMERGENCY DEPARTMENT if you experience any of the following: Sudden, severe abdominal pain or nausea/vomiting Severe chest pain, or chest pain that radiates (moves) to your jaw or arm Sudden, severe shortness of breath or difficulty breathing Thank you for allowing us to participate in your care Pending Studies at Discharge: No Stand-Alone Forms: My New [facility], Smoking Cessation Medications and DC Order Prescriptions: New amoxicillin-pot clavulanate 875-125 mg tablet 1 tab PO BID 5 Days Qty: 10 0RF Continued pantoprazole [Protonix] 40 mg Tablet,Delayed Release (Dr/Ec) 40 mg PO QAM mirtazapine 30 mg Tablet 30 mg PO HS Patient Comments: i think 30 on the strenght or something like that Medical Marijuana Card 1 dose UD PRN (Reason: back pain/ibs) Patient Comments: smoke flower Discharge Orders: Discharge Order (Routine); Ordered 05/31/24 Ordered By: Rosa Maria Perea Admission Data Admit Date/Time: 05/25/24 19:40 Attending Provider: Adela Joaquin Admit Provider: Anton Franks Primary Care Provider: Lidya Domingo Other Providers: Kenny Márquez; Preet Smith; Kendrick Campos Other Interventions: Discharge Summary Assessment (RN) Last Done: 05/31/24 10:15 Supervising Physician Co-Signing Physician Notes Attending Physician Supervision Note: I independently interviewed and examined the patient and verified the castro history and physical, reviewed labs and image studies and agree with findings and care plan noted above. no new concerns. vitals noted nad heent nc at mmm breathing unlabored no accessory muscles good effort perineal lesion - s/p drainage. continue abx to finish course at home. ongoing wound care - packing change, outpt wound clinic set up for 06/01 at [place]. Resident Activity Tracking Resident Involvement: Resident Care Provided Care Provided: Adult [facility]
== END 2024-05-31 11:03 | disposition home health service (06) | DRG 581 ==
LOC: ED 14:40 → 3W 19:40 → SUATTDRO 19:40 → 3W 20:36